=== PATIENT | male | born 1990 | race Two or more races ===

== ENCOUNTER 2017-10-19 18:09 | Emergency (ER) | payer SELFPAY ==
[~2017-10-19] VITALS: Ht 180.3 cm; Wt 73.5 kg
[2017-10-19 19:13] LABS: Basophils # (auto) 0 uL; Basophils % (auto) 0.4 % (0.0-2.0); Eosinophils # (auto) 0.2 uL; Eosinophils % (auto) 2.7 % (0.0-7.0); Hematocrit 49.1 % (41.0-53.0); Hemoglobin 16.8 g/dL (13.5-17.5); Lymphocytes # (auto) 2.5 uL; Lymphocytes % (auto) 32.5 % (10.0-50.0); Mean Corpuscular Hemoglobin 30.7 pg (28.0-32.0); Mean Corpuscular Hgb Conc. 34.3 g/dL (32.0-36.0); Mean Corpuscular Volume 89.6 fL (80.0-100.0); Mean Platelet Volume 7.8 fL (6.9-10.8); Monocytes # (auto) 0.6 uL; Monocytes % (auto) 7.3 % (0.0-12.0); Neutrophils # (auto) 4.5 uL; Neutrophils % (auto) 57.1 % (37.0-80.0); Nucleated Red Blood Cells % 0.1 %; Platelet Count (auto) 256 10^3/uL (140-450); Red Cell Distribution Width 13.6 % (11.8-14.3); White Blood Cell 7.8 10^3/uL (4.4-10.8)
[2017-10-19 19:30] LABS: Albumin 3.8 g/dL (3.4-5.0); BUN/Creatinine Ratio 10.5; Calcium 8.8 mg/dL (8.5-10.1); Magnesium 2.1 mg/dL (1.6-2.6); Potassium 3.8 mmol/L (3.5-5.1)
[2017-10-19 19:35] LABS: Bilirubin, Total 0.5 mg/dL (0.2-1.0); Total Protein 8.4 g/dL (6.4-8.2)
[2017-10-20 02:27] VITALS: BP 145/81
[2017-10-20] MEDS ORDERED: SODIUM CHLORIDE 0.9% 1,000 ML IV ONE (02:30)
== END 2017-10-20 03:31 | disposition home or self-care (01) ==
LOC: ER 18:09
DX: T65.91XA Toxic effect of unspecified substance, accidental (unintentional), initial encounter (principal); G92 Toxic encephalopathy; R00.2 Palpitations; F12.10 Cannabis abuse, uncomplicated; Y92.89 Other specified places as the place of occurrence of the external cause
CPT/HCPCS: 36415; 80053; 83735; 84484; 85025; 93005; 96360; 99285; J7030

== ENCOUNTER 2017-10-28 23:11 | Emergency (ER) | payer BC, MEDICAID ==
[~2017-10-28] VITALS: Ht 180.3 cm; Wt 127.0 kg
[2017-10-28 23:40] LABS: Basophils # (auto) 0.1 uL; Basophils % (auto) 0.6 % (0.0-2.0); Eosinophils # (auto) 0.2 uL; Eosinophils % (auto) 2.3 % (0.0-7.0); Hematocrit 49.1 % (41.0-53.0); Hemoglobin 16.7 g/dL (13.5-17.5); Lymphocytes # (auto) 3.9 uL; Lymphocytes % (auto) 42.9 % (10.0-50.0); Mean Corpuscular Hemoglobin 30.4 pg (28.0-32.0); Mean Corpuscular Volume 89.3 fL (80.0-100.0); Mean Platelet Volume 7.9 fL (6.9-10.8); Monocytes # (auto) 0.5 uL; Monocytes % (auto) 6.1 % (0.0-12.0); Neutrophils # (auto) 4.4 uL; Neutrophils % (auto) 48.1 % (37.0-80.0); Platelet Count (auto) 257 10^3/uL (140-450); Red Cell Distribution Width 13.6 % (11.8-14.3); White Blood Cell 9.1 10^3/uL (4.4-10.8)
[2017-10-28 23:59] LABS: Albumin 4.1 g/dL (3.4-5.0); Anion Gap 9 (5-15); Aspartate Aminotransferase 46 U/L (15-37); BUN/Creatinine Ratio 12.6; Blood Urea Nitrogen 12 mg/dL (7-18); Carbon Dioxide 24 mmol/L (21-32); Chloride 104 mmol/L (98-107); GFR African American 122 mL/min; GFR Non-African American 101 mL/min; Glucose 98 mg/dL (74-106); Magnesium 1.9 mg/dL (1.6-2.6); Potassium 3.4 mmol/L (3.5-5.1); Sodium 137 mmol/L (136-145)
[2017-10-29 00:04] LABS: Alkaline Phosphatase 109 U/L (45-117); Bilirubin, Total 0.3 mg/dL (0.2-1.0); Total Protein 8.7 g/dL (6.4-8.2)
[2017-10-29] MEDS ORDERED: LORazepam 0.5 MG TAB PO ONE (02:45)
[2017-10-29 03:27] LABS: Urine RBC None Seen /hpf (0 - 3)
[2017-10-29 03:35] LABS: Urine Bilirubin Negative (Negative); Urine Blood Negative /uL (Negative); Urine Color Yellow (Yellow); Urine Glucose Normal (Normal); Urine Ketone Negative (Negative); Urine Mucus FEW (None Seen); Urine Nitrite Negative (Negative); Urine Squamous Epithelial Cell FEW /hpf (<5); Urine Urobilinogen Normal (Negative); Urine pH 5.5 (5.0-8.0)
[2017-10-29 04:53] VITALS: BP 137/69
== END 2017-10-29 05:38 | disposition home or self-care (01) ==
LOC: ER 23:16
DX: R03.0 Elevated blood-pressure reading, without diagnosis of hypertension (principal); F41.9 Anxiety disorder, unspecified; F12.288 Cannabis dependence with other cannabis-induced disorder
CPT/HCPCS: 36415; 71010; 80053; 81001; 83735; 84484; 85025